=== PATIENT | female | born 1955 | race Caucasian/White ===

== ENCOUNTER 2022-07-02 15:06 | Emergency (ER) | payer MEDICARE ==
[~2022-07-02] VITALS: Ht 160 cm; Wt 69.1 kg
[2022-07-02] MEDS ORDERED: LANTUS SOLOS100 U/ML SQ (15:20)
[2022-07-02] MEDS ORDERED: ZOLOFT25 M1 PO (15:21)
[2022-07-02] MEDS ORDERED: LIPITOR 80MG80 MG PO (15:21)
[2022-07-02] MEDS ORDERED: MAGNESIUM400 MG PO (15:22)
[2022-07-02] MEDS ORDERED: BENADRYL PO (15:22)
[2022-07-02] MEDS ORDERED: K-TAB10 MEQ PO (15:23)
[2022-07-02] MEDS ORDERED: LOPRESSOR 225 MG/TAB PO (15:39)
[2022-07-02] MEDS ORDERED: ADULTS' DAILY1 EAC1 PO (15:39)
[2022-07-02] MEDS ORDERED: TOPCARE OMEPRAZ20 MG PO (15:40)
[2022-07-02 17:08] LABS: HEMATOCRIT 39.2 % (37.0-47.0); HEMOGLOBIN 13.4 g/dL (12.5-16.0); MEAN CELL VOLUME 100 fl (78-100); MEAN CORPUSCULAR HEMOGLOBIN 34 pg (27-31); MEAN CORPUSCULAR HGB CONC 34 g/dL (33-37); MEAN PLATELET VOLUME 10.5 fl (7.4-10.4); PLATELET COUNT 97 K/mm3 (130-400); RED BLOOD COUNT 3.94 M/mm3 (4.10-5.30); RED CELL DISTRIBUTION WIDTH 15.5 % (11.5-14.5); WHITE BLOOD COUNT 5.6 K/mm3 (4.8-10.8)
[2022-07-02 17:18] LABS: ALBUMIN 3.8 g/dL (3.4-4.8); POTASSIUM 3.8 mmol/L (3.5-5.1)
[2022-07-02 17:19] LABS: CALCIUM 9.1 mg/dL (8.3-10.5)
[2022-07-02 17:20] LABS: TOTAL PROTEIN 6.5 g/dL (6.2-8.1)
[2022-07-02 17:22] LABS: TOTAL BILIRUBIN 0.8 mg/dL (0.2-1.2)
[2022-07-02 17:39] LABS: BAND 1 % (0-10)
[2022-07-02 17:40] LABS: LYMPHOCYTE 6 % (20-51); MONOCYTE 7 % (3-10); NEUTROPHILS 82 % (42-75)
[2022-07-02 17:40] LABS: PH-URINE 7.5 (5.0 - 8.0); URINE APPEARANCE CLEAR; URINE BILIRUBIN NEGATIVE (NEGATIVE); URINE COLOR YELLOW; URINE GLUCOSE NEGATIVE (NEGATIVE); URINE KETONE NEGATIVE (NEGATIVE); URINE PROTEIN(semi-quant) NEGATIVE (NEGATIVE)
[2022-07-02 17:41] LABS: URINE BLOOD NEGATIVE (NEGATIVE); URINE LEUKOCYTE ESTERASE NEGATIVE (NEGATIVE); URINE NITRATE NEGATIVE (NEGATIVE); URINE UROBILINOGEN NORMAL (NORMAL); URINE WBC 0-1 /hpf (0-3)
[2022-07-02 18:13] VITALS: BP 124/66
== END 2022-07-02 18:29 | disposition short-term general hospital (02) ==
LOC: ED 15:06
PROVIDERS: Family Medicine
DX: S72.001A Fracture of unspecified part of neck of right femur, initial encounter for closed fracture (principal); S50.811A Abrasion of right forearm, initial encounter; C50.919 Malignant neoplasm of unspecified site of unspecified female breast; C79.31 Secondary malignant neoplasm of brain; E11.69 Type 2 diabetes mellitus with other specified complication; E78.5 Hyperlipidemia, unspecified; Z99.3 Dependence on wheelchair; W22.01XA Walked into wall, initial encounter
CPT/HCPCS: J3010